=== PATIENT | female | born 1975 | race Caucasian/White ===

== ENCOUNTER 2018-07-03 16:14 | Emergency (ER) | payer MEDICAID, OTHER ==
[2018-07-03] MEDS ORDERED: predniSONE 20 MG TAB PO ONE (16:40)
[2018-07-03] MEDS ORDERED: LEVALBUTEROL 1.25 MG/3 ML DEYVIAL IH ONE (16:40)
--- NOTE | 2018-07-03 16:40 | EDPHY ---
HPI/HX/ROS/PE/MDM Narrative: CHIEF COMPLAINT: Cough, asthma exacerbation HISTORY OF PRESENT ILLNESS: The patient is a 42 y/o female with a history of asthma complaining of a cough and asthma exacerbation. 4 days ago she developed cold symptoms including runny nose and congestion. 2 days ago, she developed and cough and worsening of her asthma. She reports the cough is not productive. She has associated pain in her chest. She denies vomiting, fever, or any other associated symptoms. She takes Symbicort daily and with her asthma exacerbation she has begun using her rescue inhaler twice daily. She prefers not to have nebulizers due to the jittery and anxious feeling it causes. She has not had a flu vaccine due to her egg allergy. No fever, chills, palpitations, vomiting, diarrhea, urinary complaints, headache , lightheadedness. REVIEW OF SYSTEMS: A comprehensive 10 system review of systems is otherwise negative aside from elements mentioned in the history of present illness and medical decision making PAST MEDICAL HISTORY: Asthma SOCIAL HISTORY: Non-smoker, father and brother live nearby, from [place] VITAL SIGNS: Reviewed by me GENERAL: Well-developed, well-nourished, resting comfortably in no respiratory distress. Sounds congested. HEENT: Atraumatic. Eyes: No icterus, no injection. Mouth: moist mucous membranes. Slight erythema of the throat. Neck: supple with no adenopathy. LUNGS: Prolonged expiratory phase with expiratory wheezes and a wheezy cough. No rhonchi or rales. CARDIAC: Regular rate and rhythm, no rubs, murmurs or gallops. ABDOMEN: Soft, nontender, nondistended, bowel sounds normal. BACK: No CVA tenderness. EXTREMITIES: No trauma. No edema. Range of motion is normal throughout. NEURO: Alert and oriented, grossly nonfocal. SKIN: Warm and dry, no rash. PSYCHIATRIC: Normal mentation, no agitation. ED Course: The patient presents with asthma exacerbation and cough from recent illness. Plan for Xopenex nebulizer and 60 mg prednisone and reevaluation. The patient's condition improved with the nebulizer. She is safe to be discharged with Xopenex nebulizer for home use, Tessalon beads, and prednisone. She agrees to this course of action. MDM: Differential diagnosis for the patient's shortness of breath was considered including but not limited to pulmonary infectious processes, asthma exacerbation , pulmonary emboli, pulmonary edema, congestive heart failure, and cardiac causes. - Data Points Medications Given: Discontinued Medications Levalbuterol (Xopenex 1.25mg Neb) 1.25 mg IH EDNOW ONE Stop: 07/03/18 16:41 Last Admin: 07/03/18 17:07 Dose: 1.25 mg Prednisone (Prednisone) 60 mg PO EDNOW ONE Stop: 07/03/18 16:41 Last Admin: 07/03/18 16:44 Dose: 60 mg General Time Seen by Provider: 07/03/18 16:25 Initial Vital Signs: Initial Vital Signs Temperature (C) 37.1 C 07/03/18 16:17 Heart Rate 91 07/03/18 16:17 Respiratory Rate 18 07/03/18 16:17 Blood Pressure 115/75 07/03/18 16:17 O2 Sat (%) 94 07/03/18 16:17 O2 Delivery Mode Room Air Allergies/Adverse Reactions: egg Allergy (Verified 07/03/18 16:16) erythromycin base Allergy (Verified 07/03/18 16:16) Penicillins Allergy (Verified 07/03/18 16:16) Home Medications: Medication Instructions Recorded Albuterol 07/03/18 Benzonatate [Tessalon Pearles (RX)] 100 mg PO TID PRN #20 cap 07/03/18 Levalbuterol 1.25 mg [Xopenex 1.25 mg IH QID PRN #20 deyvial 07/03/18 1.25MG Neb (*)] Symbicort 160-4.5 Mcg Inh (*) 07/03/18 predniSONE 40 mg PO DAILY #6 tab 07/03/18 Departure - Departure Disposition: Home, Routine, Self-Care Clinical Impression: Cough Asthma exacerbation Qualifiers: Asthma severity: moderate Asthma persistence: unspecified Qualified Code(s): J45.901 - Unspecified asthma with (acute) exacerbation Condition: Good Instructions: Asthma (ED), Cold Symptoms (ED), Acute Cough (ED) Additional Instructions: 1. Please take your Symbicort as you usually do. 2. Please take prednisone daily for 3 days as directed. 3. Take Tessalon pearls as directed as needed. 4. If you feel you need to thin your mucus secretions, use Mucinex. 5. Use Xopanex nebulizer as directed as needed. 6. Follow up with your primary care provider for continued symptoms in 3 to 4 days. 7. Return to the emergency department for worsening of condition. Referrals: NONE *PRIMARY CARE P,. [Primary Care Provider] - As per Instructions Lena Wilson PA [Physician .Net Developer] - As per Instructions Prescriptions: Benzonatate [Tessalon Pearles (RX)] 100 mg PO TID PRN #20 cap PRN Reason: Cough Levalbuterol 1.25 mg [Xopenex 1.25MG Neb (*)] 1.25 mg IH QID PRN #20 deyvial PRN Reason: Shortness of Breath predniSONE 40 mg PO DAILY #6 tab Report Scribed for: Tereza Mclaughlin Report Scribed by: Latonya Tate Date of Report: 07/03/18 Time of Report: 16:43 Physician Review and Approval Statement: Portions of this note were transcribed by a medical pathologist. I personally performed a history, physical exam, medical decision making, and confirmed accuracy of information the transcribed note.
[2018-07-03 17:34] VITALS: BP 135/85
== END 2018-07-03 17:32 | disposition home or self-care (01) ==
DX: R05 Cough (principal); J45.901 Unspecified asthma with (acute) exacerbation; Z88.0 Allergy status to penicillin
CPT/HCPCS: J7512

== ENCOUNTER → 2018-07-07 | Outpatient (CLI) | payer MEDICAID | LOC: FLAB 11:53 | PROVIDERS: ATTEND Registered Nurse | DX: R05 Cough (principal); R06.02 Shortness of breath ==